=== PATIENT | male | born 1990 | race Hispanic/Latino ===

== ENCOUNTER 2021-04-04 14:20 | Outpatient (CLI) | payer OTHER, SELFPAY ==
[2021-04-05 00:42] LABS: SARS-CoV-2 PCR by NAA Not Detected (NotDetected)
== END 2021-04-04 14:21 | disposition home or self-care (01) ==
LOC: LABBT 14:20
PROVIDERS: ATTEND Urology
DX: Z01.812 Encounter for preprocedural laboratory examination (principal); N20.1 Calculus of ureter; Z20.822 Contact with and (suspected) exposure to COVID-19
CPT/HCPCS: 87635; U0003; U0005

== ENCOUNTER 2021-04-08 08:35 | Day surgery (SDC) | payer OTHER ==
[2021-04-07 13:34] VITALS: BMI 27.7
[2021-04-08] MEDS ORDERED: Levofloxacin 500 mg/D5W 100 ml Premix Bag ONE (09:58)
[2021-04-08] MEDS ORDERED: Iothalamate Meglumine 60% 50 ML VIAL FS ONE (10:40)
[2021-04-08] MEDS ORDERED: Fentanyl 100 MCG/2 ML VIAL ONE ×2 (10:46→12:32)
[2021-04-08] MEDS ORDERED: PROPOFOL 200 MG/20 ML VIAL ONE (11:09)
[2021-04-08] MEDS ORDERED: Ondansetron PF 4 MG/2 ML Vial ONE (11:09)
[2021-04-08] MEDS ORDERED: diphenhydrAMINE 50 MG/ML VIAL ONE (11:09)
[2021-04-08] MEDS ORDERED: Lidocaine 1% PF 5 ML VIAL ONE (11:09)
[2021-04-08] MEDS ORDERED: Ketorolac Tromethamine 30 MG/ML VIAL ONE (11:09)
[2021-04-08] MEDS ORDERED: Dexamethasone 20 MG/5 ML VIAL ONE (11:09)
[2021-04-08] MEDS ORDERED: Oxybutynin 5 MG TAB ONE (12:57)
[2021-04-08] MEDS ORDERED: HYDROcodone/Acetaminophen 5/325 mg Tablet ONE (14:06)
== END 2021-04-08 14:19 | disposition home or self-care (01) ==
LOC: SDC 08:35
PROVIDERS: ATTEND Urology
PROC: 0T768DZ Dilation of Right Ureter with Intraluminal Device, Via Natural or Artificial Opening Endoscopic (ICD-10-PCS; principal; 2021-04-08)
PROC: 0TC68ZZ Extirpation of Matter from Right Ureter, Via Natural or Artificial Opening Endoscopic (ICD-10-PCS; principal; 2021-04-08)
DX: N20.1 Calculus of ureter (principal)
CPT/HCPCS: 74420; 82365; 88300; J1100; J1200; J1885; J1956; J2405; J2704; J3010; Q9961

== ENCOUNTER 2021-12-10 10:24 | Outpatient (CLI) | payer OTHER | END 2021-12-10 10:25 | disposition home or self-care (01) | LOC: BICRAD 10:24 | PROVIDERS: ATTEND Family Medicine | DX: M25.561 Pain in right knee (principal) ==